=== PATIENT | female | born 1980 | race Caucasian/White ===

== ENCOUNTER 2017-05-19 17:37 | Emergency (ER) | payer OTHER ==
[~2017-05-19] VITALS: Ht 167.6 cm; Wt 98.4 kg
[2017-05-19 17:47] VITALS: BP 125/79
--- NOTE | 2017-05-19 18:21 | NUR ---
PT TO BED 12 AT THIS TIME
--- NOTE | 2017-05-19 18:59 | NUR ---
PT WAS ON BEDSIDE WITH DAUGHTER WHO ALSO WAS PATIEN COMPLAINING OF ABDOMINAL PAIN. PT COMAPLAINING OF UNCOMFORTABLE WHEN URINATIONG X 1 WK. DENIES URGENCY AND FREQUENCY, NO FEVER AND CHILLS.
[2017-05-19] MEDS ORDERED: LEVOFLOXACIN 500 MG TAB PO ONE (20:10)
[2017-05-19] MEDS ORDERED: PHENAZOPYRIDINE 100 MG TAB PO ONE (20:10)
[2017-05-19 20:42] LABS: APPEARANCE,URINE CLEAR (CLEAR); BILIRUBIN,URINE NEGATIVE (NEGATIVE); BLOOD, URINE NEGATIVE (NEGATIVE); COLOR,URINE YELLOW (YELLOW); LEUKOCYTE ESTERASE ,URINE NEGATIVE (NEGATIVE); NITRITE, URINE NEGATIVE (NEGATIVE); UGLUCOSE NEGATIVE (NEGATIVE)
[2017-05-19 21:00] VITALS: BP 132/72
--- NOTE | 2017-05-19 21:00 | NUR ---
VSS, PT STABLE, ALL NEEDS MET AT THIS TIME
--- NOTE | 2017-05-19 23:00 | NUR ---
PATIENT ELOPED FROM FACILITY. DISCHARGE INSTRUCTIONS NOT GIVEN TO PATIENT. DR. VILLAGOMEZ NOTIFIED.
== END 2017-05-19 23:00 | disposition home or self-care (01) ==
LOC: MED 17:37
DX: N39.0 Urinary tract infection, site not specified (principal); Z90.49 Acquired absence of other specified parts of digestive tract
CPT/HCPCS: 81003; 81025; 99284; J7030

== ENCOUNTER 2017-10-28 11:57 | Emergency (ER) | payer OTHER ==
[~2017-10-28] VITALS: Ht 167.6 cm; Wt 99.5 kg
[2017-10-28 12:02] VITALS: BP 154/86
--- NOTE | 2017-10-28 12:08 | NUR ---
PT AMBULATES TO BED 1
--- NOTE | 2017-10-28 12:33 | NUR ---
37/F PRESENT TO ER C/O NECK PAIN X 3 MONTHS, CIRCULAR ERYTHEMA ON TOP OF LT FOOT WITHOUT PAIN; DENIES INJURY. PAIN /10 NON-RADIATING. DENIES N/V/D; SKIN IS PINK/WARM/DRY; AAOX4 WITH EVEN AND STEADY GAIT; LUNGS CLEAR BL; HR EVEN AND REGULAR; PT DENIES ANY FEVER, CP, SOB, OR COUGH AT THIS TIME; VSS; PATIENT POSITIONED FOR COMFORT; HOB ELEVATED; BEDRAILS UP X2; BED DOWN. ER MD MADE AWARE OF PT STATUS.
--- NOTE | 2017-10-28 12:45 | NUR ---
Patient being evaluated by physician at bedside.
--- NOTE | 2017-10-28 14:05 | NUR ---
Patient discharged with v/s stable. Written and verbal after care instructions given and explained. Patient alert, oriented and verbalized understanding of instructions. Ambulatory with steady gait. All questions addressed prior to discharge. ID band removed. Patient advised to follow up with PMD. Rx of FLEXIRIL 10MG, MOTRIN 600MG AND LAMISIL 250MG TABLET given. Patient educated on indication of medication including possible reaction and side effects. Opportunity to ask questions provided and answered.
[2017-10-28 14:07] VITALS: BP 128/79
== END 2017-10-28 14:05 | disposition home or self-care (01) ==
LOC: MED 11:57
DX: S16.1XXA Strain of muscle, fascia and tendon at neck level, initial encounter (principal); I10 Essential (primary) hypertension; X58.XXXA Exposure to other specified factors, initial encounter; Y93.89 Activity, other specified; Y92.89 Other specified places as the place of occurrence of the external cause; Y99.8 Other external cause status
CPT/HCPCS: 99283